=== PATIENT | male | born 1995 | race Caucasian/White ===

== ENCOUNTER → 2022-02-08 | Day surgery (SDC) | payer OTHER ==
[~2022-02-08] MED LIST: FENTANYL CITRATE/PF 100MCG/2 ML INJ ONE; HYOSCYAMINE SULFATE 0.5 MG/ML INJ ONE; LIDOCAINE HCL 2% LOCAL INJ 5 ML SDV VIAL INJ ONE; MIDAZOLAM HCL 2 MG/2 ML VIAL ONE; PROPOFOL IV EMULSION 10 MG/ML 20 ML VIAL ONE; [UNRECOGNIZED DRUG - OTHER]
[2022-02-08 15:30] VITALS: BP 101/66
[2022-02-08 15:52] LABS: WBC,FECAL (FECAL LACTOFERRIN) NEGATIVE (NEGATIVE)
[2022-02-09 11:44] LABS: C DIFFICILE TOXIN A&B AMP PROB **POSITIVE** (NEGATIVE)
== END | disposition home or self-care (01) ==
LOC: OR 13:03
PROVIDERS: ATTEND Internal Medicine Gastroenterology
DX: K51.811 Other ulcerative colitis with rectal bleeding (principal); K63.5 Polyp of colon; K62.89 Other specified diseases of anus and rectum; K64.8 Other hemorrhoids; I81 Portal vein thrombosis; Z71.3 Dietary counseling and surveillance; F17.290 Nicotine dependence, other tobacco product, uncomplicated; F17.210 Nicotine dependence, cigarettes, uncomplicated; Z71.6 Tobacco abuse counseling; Z88.0 Allergy status to penicillin; Z01.812 Encounter for preprocedural laboratory examination; Z20.822 Contact with and (suspected) exposure to COVID-19; Z68.30 Body mass index [BMI] 30.0-30.9, adult; Z86.2 Personal history of diseases of the blood and blood-forming organs and certain disorders involving the immune mechanism; Z86.16 Personal history of COVID-19
CPT/HCPCS: 36415; 45380; 83630; 83993; 85651; 86141; 86256; 86671; 87045; 87177; 87328; 87493; J1980; J2001; J2250; J2704; J3010; U0002

== ENCOUNTER → 2024-11-29 | Day surgery (SDC) | payer OTHER ==
[~2024-11-29] MED LIST changes: +BENADRYL25 M1 PO; +DICYCLOMINE HCL20 MG PO; +DOXYCYCLINE HY100 MG PO; +FOLIC ACID0.4 MG PO; +GLUCAGON FOR INJ 1 MG VIAL ONE; -HYOSCYAMINE SULFATE 0.5 MG/ML INJ ONE; +LIALDA1.2 GM PO; +LOPERAMIDE2 MG PO; +METHYLPREDNISOLONE SOD SUCC 125 MG/2ML VIAL ONE; +METOCLOPRAMIDE HCL 10 MG/2ML VIAL ONE; -MIDAZOLAM HCL 2 MG/2 ML VIAL ONE; +PREDNISONE5 MG PO; +PROPOFOL IV EMULSION 0 ML IV ONE; +TYLENOL EXTRA500 MG PO
[2024-11-29] MEDS: LACTATED RINGER'S 1,000 ML ONE (11:28)
[2024-11-29 12:56] VITALS: TEMP 97
[2024-11-29] MEDS: METHYLPREDNISOLONE SOD SUCC 125 MG/2ML VIAL IV ONE (13:03)
[2024-11-29 13:20] VITALS: BP 114/71; PULSE 87; RESP 18; O2SAT 99
[2024-11-29 16:58] LABS: CDIFF AG QUIK CHEK NEGATIVE (NEGATIVE); CDIFF TOX QUIK CHEK NEGATIVE (NEGATIVE); WBC,FECAL (FECAL LACTOFERRIN) POSITIVE (NEGATIVE)
[2024-11-30 14:59] LABS: C-REACTIVE PROTEIN 92 mg/L (0-10)
[2024-12-03 08:10] LABS: ENDOMYSIAL ANTIBODIES, IGA Negative (Negative)
[2024-12-03 08:23] LABS: IMMUNOGLOBULIN A 246 mg/dL (90-386); TISSUE TRANSGLUTAMINASE IGA AB <2 U/mL (0-3)
== END | disposition home or self-care (01) ==
LOC: OR 10:30
PROVIDERS: ATTEND Internal Medicine Gastroenterology
DX: K51.811 Other ulcerative colitis with rectal bleeding (principal); K29.50 Unspecified chronic gastritis without bleeding; K29.80 Duodenitis without bleeding; K20.90 Esophagitis, unspecified without bleeding; K31.89 Other diseases of stomach and duodenum; K62.89 Other specified diseases of anus and rectum; R63.0 Anorexia; R63.4 Abnormal weight loss; F17.290 Nicotine dependence, other tobacco product, uncomplicated; Z71.6 Tobacco abuse counseling; Z88.0 Allergy status to penicillin; Z79.899 Other long term (current) drug therapy; Z86.2 Personal history of diseases of the blood and blood-forming organs and certain disorders involving the immune mechanism
CPT/HCPCS: 43239; 45380; 82784; 83516; 83630; 83993; 86140; 86256; 87045; 87177; 87324; 87328; 87449; J2003; J2470; J2704; J2765; J2919; J3010; J7121; 45378; J1610